=== PATIENT | male | born 1960 | race Caucasian/White ===

== ENCOUNTER 2017-07-05 08:25 | Day surgery (SDC) | payer BC ==
[2017-07-04 11:41] VITALS: BMI 26.3
[~2017-07-05 08:25] MED LIST: DEXAMETHASONE SOD PHOSPHATE 10 MG/ML 1 ML VIAL IV ONE; DEXAMETHASONE SOD PHOSPHATE 4 MG/ML 1 ML VIAL IV ONE; FAMOTIDINE 20 MG/2 ML VIAL IV ONE; HYDROmorphone 0.5 MG/0.5 ML SYRINGE IVP PRN; LACTATED RINGERS 1,000 ML IV SCH; ONDANSETRON 4 MG/2 ML VIAL IVP ONE; ceFAZolin 2 GM in SODIUM CHLORIDE 0.9% 100 ML IVPB ONE
[2017-07-05 08:42] VITALS: RESP 16
[2017-07-05] MEDS: OXYMETAZOLINE 0.05% NASL SPRAY 1 SPRAY BOTTLE NASAL ONE ×5 (08:42→09:10)
[2017-07-05] MEDS ORDERED: LIDOCAINE 1% 20 ML VIAL (10MG/ML) FOR IV START INTRADERMA ONE (09:01)
[2017-07-05] MEDS ORDERED: fentaNYL (PF) 50 MCG/ML 2 ML AMP ONE (10:49)
[2017-07-05] MEDS ORDERED: MIDAZOLAM 2 MG/2 ML VIAL ONE (10:49)
[2017-07-05] MEDS ORDERED: DEXAMETHASONE SOD PHOS (MDV) 100 MG/10 ML VIAL ONE (10:49)
[2017-07-05] MEDS ORDERED: LIDOCAINE 1% INJ 10MG/ML (20 ML MDV) ONE (10:49)
[2017-07-05] MEDS ORDERED: PROPOFOL 10 MG/ML 20 ML VIAL IV ONE (10:49)
[2017-07-05] MEDS ORDERED: SUCCINYLCHOLINE CHLORIDE 100 MG/5 ML SYR IV ONE (10:49)
[2017-07-05] MEDS ORDERED: MORPHINE SULFATE 10 MG/ML SYRINGE ONE (10:49)
[2017-07-05] MEDS ORDERED: FLUORESCEIN STRIPS 1 MG STRIP MISCELLANE ONE (11:23)
[2017-07-05] MEDS ORDERED: EPINEPHrine 1 MG/ML (MDV) 30 ML VIAL IRRIGATION ONE (11:23)
[2017-07-05] MEDS ORDERED: LIDOCAINE 2%-EPI 1:100,000 20 ML VIAL SQ ONE (11:24)
[2017-07-05] MEDS ORDERED: BACITRACIN 500 UNIT/GM OINT 28.4 GM TUBE TOPICAL ONE (12:18)
[2017-07-05 12:46] VITALS: TEMP 98.8
--- NOTE | 2017-07-05 12:47 | P.OP ---
Date of Procedure: 07/05/17 Preoperative Diagnosis: Chronic pansinusitis with sinonasal polyposis and deviated nasal septum Postoperative Diagnosis: Same Procedure(s) Performed: Image guided lateral functional endoscopic sinus surgery with polypectomy and septoplasty Anesthesia: BEAR Surgeon: Donny Fischer Estimated Blood Loss (ml): 50 Pathology: other (Sinonasal) Condition: stable Disposition: PACU Indications for Procedure: This patient presented to the office with continued sinonasal symptoms including total anosmia, nasal obstruction, yellow drainage etc. He has sinus surgery in 1987 and [facility] where he had infraturbinal maxillary antrostomies intranasal polypectomy. He was found have a deviated nasal septum widespread pansinusitis and sinonasal polyposis. CAT scan evaluation was quite impressive with a large amount of sinus disease intranasal polyposis etc. After long discussion any discussion including risks benefits and alternative therapies, the patient would like to proceed forward with surgery. Operative Findings: Patient had a deviated nasal septum to the left with massive polyposis throughout all sinuses Description of Procedure: This patient was taken to the operative room and placed in the supine position. A general inhalation anesthetic was administered to the patient by the department of anesthesia with a functioning IV line in place. The patient was monitored throughout the entire case by the department of anesthesia. The eyes were taped shut for protection. The patient was placed in a slight reverse Trendelenburg position. The patient had previously utilize Afrin nasal spray preoperatively. The nose was evaluated and the septum lateral nasal wall and inferior turbinates were injected with lidocaine 1% with epinephrine 1 100,000 bilaterally. Approximately 10 minutes were allowed wait for full vasoconstrictive effects to take place. At this point a caudal incision was made over the caudal portion of the left septum down to the mucoperichondrium. A mucoperichondrial flap was elevated on the left side and dissection was carried with use of tunnels posteriorly. We then made a crossover incision through the cartilage to the contralateral side and for the mucoperichondrial flap development was performed to the extent of visualization on the contralateral side. After the cartilage was freed with use of several crosshatching incisions the septum was straightened and placed back in the midline. The septum was sutured fixated to the ovarian groove. Excellent straightening occurred and the septum was visibly straight. Incision was closed with a 40 rapid Vicryl. We utilized a running nonlocking fashion for closure of the incision. A quilting stitch was used to reapproximate the septal flaps with use of a 40 rapid Vicryl. We then entered the nose with a 0 and 30 Lal herno endoscope. Image guided technology was utilized throughout the procedure. We did get image we would points and use these as reference point throughout the surgery. Previous to this we did inject the lateral nasal wall and middle turbinate and uncinate process with lidocaine 1% with epinephrine 1 100,000. Approximately 10 minutes were allowed wait for full vasoconstrictive effects to take place. Intranasal polyps were noted. They were noted bilaterally. The intranasal polyps were removed with use of a microdebrider. With use of a microdebrider and a pediatric backbiter, we took down the uncinate process bilaterally. We then opened the maxillary sinuses bilaterally. We utilized a microdebrider for this and entered the maxillary sinuses and removed diseased tissue and polypoid tissue. This was done bilaterally. After the maxillary sinuses were opened and the diseased tissue and polyps were removed we entered the ethmoid bulla and with use of a microdebrider and up-biting Terrell, we remove the anterior septations and remove diseased tissue from the anterior ethmoids with direct visualization. We then followed the fovea frontalis through the basal lamella and into the posterior ethmoid air cells and did a total ethmoidectomy with removal of polypoid material. Once the ethmoids cells were all taken down we then entered the sphenoid sinus medially and inferiorly underneath the inferior attachment of the superior turbinate. The sphenoid sinus was opened entered and diseased tissue and polyps were removed bilaterally. We did utilized balloon technology to widen the opening that was made. Diseased tissue course was removed. This was done with a microdebrider and [place]. We then entered the frontal sinuses with a giraffe and up-biting Neto entered on the agar nasi cells. We open the frontal sinuses and removed sinus tissue and polypoid tissue that was diseased. We explored the frontal sinuses bilaterally. To summarize all sinuses were open all sinuses were explored and we remove diseased tissue and polyps from the sphenoid maxillary and frontal sinuses. Polyps were removed from the nose. Ethmoid sinuses were opened totally. Vencie in a gloved finger was inserted and minimal bleeding was encountered. We reinspected the skull base there is no signs of any orbital penetration or signs of any intracranial penetration. The sugical site was reinspected after the Merocel was placed and no bleeding was seen. Patient was taken to postanesthesia recovery in excellent condition.
[2017-07-05] MEDS ORDERED: LACTATED RINGERS 1,000 ML IV ONE (13:31)
[2017-07-05] MEDS ORDERED: HYDROcodone/APAP 5-325MG 1 EACH TAB PO ONE (13:52)
[2017-07-05 17:51] VITALS: BP 138/80; PULSE 80
[2017-07-05] MEDS ORDERED: PROMETHAZINE INJ 25 MG/ML 1 ML VIAL IM ONE (18:00)
[2017-07-05] MEDS ORDERED: SCOPOLAMINE 1.5MG/72HR PATCH TRANSDERM ONE (18:01)
== END 2017-07-05 18:43 | disposition home or self-care (01) ==
LOC: OR 08:25
PROVIDERS: ATTEND Otolaryngology
DX: J32.4 Chronic pansinusitis (principal); J34.2 Deviated nasal septum; J33.8 Other polyp of sinus; R43.0 Anosmia; Z91.040 Latex allergy status; Z88.5 Allergy status to narcotic agent; Z88.1 Allergy status to other antibiotic agents
CPT/HCPCS: 31276; 31255; 31267; 30520; 88305; C1726; J0171; J2250; J1100 ×2; J2550; J2270; J0690; J2405; J2001; J3010; J0330; J2704; 88304